=== PATIENT | male | born 1950 | race Caucasian/White ===

== ENCOUNTER 2016-03-18 20:02 | Emergency (ER) | payer BC ==
[2016-03-18 20:15] VITALS: BP 138/74; PULSE 80; TEMP 98.9; BMI 27.1
--- NOTE | 2016-03-18 20:18 | PDOC ---
History of Present Illness - History of Present Illness Initial Comments: 03/18/16 21:08 Patient is a 65 year old male with significant medical hx of HTN, HLD, GERD, peptic ulcers, and diverticulosis who has been sent to the ED from [facility] for abnormal ECG. Today the patient began experiencing sore throat, nausea, vomiting , chills, and subjective fever. Later this afternoon he went to [facility] and was found positive for strep throat. The patient was given antibiotics and had an ECG taken. The physician found abnormal findings to the ECG and advised the patient to be seen by an ER. Patient was surrounded by family members who were sick with strep throat this past week. Surgical Hx: Right distal toe amputation Newspaper Editor: Dr. Arroyo PCP: Dr. Haque <Jacinta Agnulo - Last Filed: 03/18/16 21:16> <Sherley Back - Last Filed: 03/19/16 04:34> - General Chief Complaint: Cold Symptoms Stated Complaint: SENT FOR EKG CHANGES Time Seen by Provider: 03/18/16 20:05 Past History <Jacinta Angulo - Last Filed: 03/18/16 21:16> - Past Medical History Anemia: No Asthma: No Cancer: No Cardiac Disorders: No CVA: No COPD: No CHF: No Dementia: No Diabetes: No GI Disorders: No Disorders: No HTN: Yes Hypercholesterolemia: Yes (HYPERLIPIDEMIA) Liver Disease: Yes (GERD,ANTRAL ULCERS,DIVERTICULOSIS) Seizures: No Thyroid Disease: No - Surgical History Abdominal Surgery: No Appendectomy: No Cardiac Surgery: No Cholecystectomy: No Lung Surgery: No Neurologic Surgery: No Orthopedic Surgery: Yes (RIGHT DISTAL TOE AMPUTATION) - Psycho/Social/Smoking Cessation Hx Suicidal Ideation: No Smoking History: Never smoked Have you smoked in the past 12 months: No Hx Alcohol Use: No Drug/Substance Use Hx: No Substance Use Type: None Hx Substance Use Treatment: No <Sherley Back - Last Filed: 03/19/16 04:34> - Past Medical History Allergies/Adverse Reactions: Allergies Allergy/AdvReac Type Severity Reaction Status Date / Time No Known Allergies Allergy Verified 11/19/14 14:51 Home Medications: Ambulatory Orders Ascorbic Acid [Vitamin C -] 1,000 mg PO HS 11/19/14 Aspirin [ASA -] 1 tab PO DAILY 11/19/14 Atenolol [Tenormin -] 25 mg PO BID 11/19/14 Multivitamin with Minerals [Icaps Plus] 1 tab PO DAILY 11/19/14 Niacin [Niaspan] 1,000 mg PO HS 11/19/14 [place]den-3 Acid Ethyl Esters [Lovaza -] 1,000 mg PO BID 11/19/14 Amoxicillin - [Amoxicillin 875mg Tablet -] 875 mg PO BID 03/18/16 Review of Systems - Review of Systems Comments:: 03/18/16 21:09 CONSTITUTIONAL: Present: subjective fever, chills Absent: diaphoresis, generalized weakness, malaise, loss of appetite HEENT: Present: sore throat Absent: rhinorrhea, nasal congestion, throat swelling, difficulty swallowing, mouth swelling, ear pain, eye pain, visual changes CARDIOVASCULAR: Absent: chest pain, syncope, palpitations, irregular heart rate, lightheadedness , peripheral edema RESPIRATORY: Absent: cough, shortness of breath, dyspnea with exertion, orthopnea, wheezing, stridor, hemoptysis GASTROINTESTINAL: Present: nausea, vomiting Absent: abdominal pain, abdominal distension, diarrhea, constipation, melena, hematochezia GENITOURINARY: Absent: dysuria, frequency, urgency, hesitancy, hematuria, flank pain, genital pain MUSCULOSKELETAL: Absent: myalgia, arthralgia, joint swelling SKIN: Absent: rash, itching, pallor HEMATOLOGIC/IMMUNOLOGIC: Absent: easy bleeding, easy bruising, lymphadenopathy, frequent infections ENDOCRINE: Absent: unexplained weight gain, unexplained weight loss, heat intolerance, cold intolerance NEUROLOGIC: Absent: headache, focal weakness or paresthesia, dizziness, unsteady gait, seizure, mental status changes, bladder or bowel incontinence. PSYCHIATRIC: Absent: anxiety, depression, suicidal or homicidal ideation, hallucinations <Jacinta Angulo - Last Filed: 03/18/16 21:16> *Physical Exam - Vital Signs Last Vital Signs Temp Pulse Resp BP Pulse Ox 98.9 F 80 18 138/74 97 03/18/16 20:13 03/18/16 20:13 03/18/16 20:13 03/18/16 20:13 03/18/16 20:13 - Physical Exam Comments: 03/18/16 21:10 GENERAL: The patient is awake, alert, and fully oriented, in no acute distress. HEAD: Normal with no signs of trauma. EYES: Pupils equal, round and reactive to light, extraocular movements intact, sclera anicteric, conjunctiva clear with no pallor. ENT: Ears normal, nares patent. Small exudative patch on the right oropharynx, mild erythema, no edema. Moist mucous membranes. NECK: Mildly tender anterior cervical lymphadenopathy bilaterally. Normal range of motion, supple. No JVD or masses. LUNGS: Breath sounds equal, clear to auscultation bilaterally. No wheeze/ crackles. HEART: 1/6 systolic murmur at the left sternal boarder. Regular rate and rhythm , normal S1 and S2. ABDOMEN: Soft/nontender/nondistended. BS wnl. No guarding or rebound. No palpable masses. No hepatosplenomegaly. EXTREMITIES: Normal range of motion, no edema. No clubbing or cyanosis. No cords, erythema, or tenderness. NEUROLOGICAL: Cranial nerves II through XII grossly intact. Normal speech, normal gait. PSYCH: Normal mood, normal affect. SKIN: Warm, Dry, normal turgor, no rashes or lesions noted. <Jacinta Angulo - Last Filed: 03/18/16 21:16> - Vital Signs Last Vital Signs Temp Pulse Resp BP Pulse Ox 98.9 F 80 18 138/74 97 03/18/16 20:13 03/18/16 20:13 03/18/16 20:13 03/18/16 20:13 03/18/16 20:13 <Sherley Back - Last Filed: 03/19/16 04:34> Heart Score/ECG Review #1 03/18/16 21:12 Normal sinus rhythm at [address] abnormality Abnormal ECG <Jacinta Angulo - Last Filed: 03/18/16 21:16> Medical Decision Making - Medical Decision Making Documentation has been prepared under my direction and personally reviewed by me in its entirety. I attest that this documented accurately reflects all work, treatment, procedures and medical decision making performed by me. As noted above, this 65-year-old man with a history of hypertension and hyperlipidemia (controlled without medications) was sent from the [facility] where he presented with subjective fever. Strep pharyngitis was diagnosed from an office testing[patient did have exposure to strep pharyngitis in [place] during the last week] When the patient complained of lightheadedness and mild nausea, EKG was performed. It was advised that he come to an ER when EKG revealed shallow ST depressions in some the precordial leads. Patient making a note saying that he felt entirely better after a liter of normal saline was administered IV at the urgent care. He has no other complaints now and denies nausea/lightheadedness/chest pain/ shortness of breath/abdominal pain. Exam is noted. Twelve-lead electrocardiogram performed here showed normal sinus rhythm at 81 weeks per minute; while there is shallow ST segment depressions in V3 through 5 , these are unchanged from twelve-lead electrocardiogram dated 06/06/10. CK-MB/troponin levels drawn here are not elevated. Patient is followed by Dr. Arroyo, whom he sees every 6 months. Patient has regular EKGs at the office without apparent change, according to the patient. He has not had stress testing or calcium plaque evaluation in a few years but is due to have these tests in this calendar year (2016) The case was discussed with who is covering for Dr. Arroyo: Unlikely that there is ongoing myocardial ischemia in light of no significant change as compared to previous EKG tracing and negative cardiac enzymes. Patient will be discharged; he states he will call Dr. Arroyo tomorrow to arrange follow-up in the near future. Meanwhile, amoxicillin has been prescribed for the patient by the urgent care center for his strep pharyngitis. He should not work for the next 48 hours. He should return to the ER if he has any chest pain/shortness of breath/nausea/ diaphoresis. <Sherley Back - Last Filed: 03/19/16 04:34> *DC/Admit/Observation/Transfer - Attestations Scribe Attestion: 03/18/16 21:12 Documentation prepared by Jacinta Angulo, acting as lead medical technologist for Sherley Back MD. <Jacinta Angulo - Last Filed: 03/18/16 21:16> <Sherley Back - Last Filed: 03/19/16 04:34> Diagnosis at time of Disposition: Strep pharyngitis - Discharge Dispostion Disposition: HOME Condition at time of disposition: Stable - Patient Instructions Printed Discharge Instructions: Strep Throat Additional Instructions: rest;drink plenty of fluids Amoxicillin as prescribed Continue other medications as prescribed Call tomorrow as discussed Return to ER immediately if you have persistent nausea/chest pain
[2016-03-18 21:02] LABS: CPK(DFH) 72 IU/L (38-174)
[2016-03-18 21:11] LABS: TROPONIN I (DFP) < 0.03 ng/ml (0.03-0.50)
--- NOTE | 2016-03-22 14:43 | EKG ---
Test Reason : Blood Pressure : / mmHG Vent. Rate : 077 BPM Atrial Rate : 077 BPM P-R Int : 132 ms QRS Dur : 086 ms QT Int : 400 ms P-R-T Axes : 021 029 048 degrees QTc Int : 453 ms SINUS RHYTHM NONSPECIFIC ST ABNORMALITY WHEN COMPARED WITH ECG OF 18-JUN-1998 21:59, NONSPECIFIC ST ABNORMALITY are now noted Confirmed by TETO RAMIREZ MD ([id number]) on 03/22/2016 2:43:29 PM Referred By: MD LEES Confirmed By:TETO RAMIREZ MD
== END 2016-03-18 21:43 | disposition home or self-care (01) ==
LOC: FER 20:02
DX: J02.0 Streptococcal pharyngitis (principal); Z79.82 Long term (current) use of aspirin; I10 Essential (primary) hypertension; E78.5 Hyperlipidemia, unspecified; K21.9 Gastro-esophageal reflux disease without esophagitis
CPT/HCPCS: 36415; 82550; 84484; 93005; 99282-25

== ENCOUNTER 2019-05-04 09:38 | Day surgery (SDC) | payer OTHER, BC ==
[2019-05-03 11:31] VITALS: BMI 27.8
[2019-05-04 12:13] VITALS: TEMP 97.7
[2019-05-04 12:17] VITALS: PULSE 50
[2019-05-04 12:28] VITALS: BP 151/70
--- NOTE | 2019-05-07 16:28 | PATH ---
Surgical Pathology Report Patient Name: ASHLEY MOMIN [facility]. Rec. #: [id number] /Age/Gender: 1950 (Age: 68) / M Account: [id number] Location: [facility]-ENDOSCOPY Taken: 05/04/2019 Received: 05/04/2019 Reported: 05/07/2019 Physicians: Fely Beltre M.D. Specimen(s) Received A: CECUM POLYP B: SIGMOID POLYP Clinical History History of colon polyps and rectal bleeding Postoperative diagnosis: Diverticulosis, colon polyps, hemorrhoidal bleeding Final Diagnosis A. CECUM POLYP, POLYPECTOMY: HYPERPLASTIC POLYP. B. SIGMOID POLYP, POLYPECTOMY: HYPERPLASTIC POLYP. Electronically Signed Tangela Mcwilliams M.D. Gross Description A. Received in formalin, labeled "biopsy polyp cecum" is a vincent, irregular portion of soft tissue measuring 0.4 cm. in greatest dimension. The specimen is submitted in toto in one cassette. B. Received in formalin, labeled "biopsy sigmoid polyp" are 2 vincent, irregular portions of soft tissue measuring 0.1 and 0.3 cm. in greatest dimension. The specimens are submitted in toto in one cassette. DL/05/04/2019 saudi/05/04/2019
== END 2019-05-04 12:48 | disposition home or self-care (01) ==
LOC: JASU-ENDO 09:38
PROVIDERS: ATTEND Internal Medicine Gastroenterology
PROC: 0DBN8ZX Excision of Sigmoid Colon, Via Natural or Artificial Opening Endoscopic, Diagnostic (ICD-10-PCS; 2019-05-04)
PROC: 0DBC8ZX Excision of Ileocecal Valve, Via Natural or Artificial Opening Endoscopic, Diagnostic (ICD-10-PCS; principal; 2019-05-04 09:00)
DX: Z12.11 Encounter for screening for malignant neoplasm of colon (principal); D12.5 Benign neoplasm of sigmoid colon; D12.0 Benign neoplasm of cecum; K92.1 Melena; K57.30 Diverticulosis of large intestine without perforation or abscess without bleeding; K64.8 Other hemorrhoids; I10 Essential (primary) hypertension; E78.5 Hyperlipidemia, unspecified; Z85.46 Personal history of malignant neoplasm of prostate; M19.90 Unspecified osteoarthritis, unspecified site; E55.9 Vitamin D deficiency, unspecified; M54.5 Low back pain
CPT/HCPCS: 88305-TC